=== PATIENT | female | born 1990 | race Caucasian/White ===

== ENCOUNTER 2018-05-30 10:17 | Day surgery (SDC) | payer OTHER ==
[2018-05-30 11:04] VITALS: BMI 34.0
[2018-05-30 11:16] VITALS: BP 113/55; TEMP 99.4
[2018-05-30] MEDS ORDERED: Iron Sucrose Complex 500 MG in Sodium Chloride 0.9% 250 ML 250 ML IVPB SCH (11:35)
[2018-05-30] MEDS ORDERED: Acetaminophen 500 MG TAB PO SCH (11:45)
== END 2018-05-30 15:45 | disposition home health service (06) ==
LOC: L&D/OP 10:17
PROVIDERS: ATTEND Obstetrics & Gynecology
DX: O99.013 Anemia complicating pregnancy, third trimester (principal); Z3A.35 35 weeks gestation of pregnancy
CPT/HCPCS: 96361; 96365; 96366; 99282; J1756; J7050

== ENCOUNTER 2018-06-14 16:37 | Inpatient (IN) | payer OTHER ==
[~2018-06-14 16:37] MED LIST: Bupivacaine/Epinephrine 0.25% 30 ML VIAL ONE; Lidocaine 2% MPF 10 ML AMP (For Epidural Use) ONE
[2018-06-14 17:18] VITALS: BMI 34.4
[2018-06-14] MEDS ORDERED: Lidocaine 1% (PF) 30 ML VIAL SC PRN (17:44)
[2018-06-14] MEDS ORDERED: Butorphanol Tartrate 1 MG/ML VIAL SLOW IVP PRN (17:44)
[2018-06-14] MEDS ORDERED: NS / Oxytocin 40 units/1000ml 1,000 ML IV PRN (17:44)
[2018-06-14] MEDS ORDERED: HYDROcodone/Acetaminophen 5/325 mg Tablet PO PRN ×2 (17:44)
[2018-06-14] MEDS ORDERED: Ibuprofen 800 MG TAB PO PRN (17:44)
[2018-06-14] MEDS ORDERED: NS w/ Oxytocin 10 units 500 ML IV SCH (17:45)
[2018-06-14] MEDS ORDERED: Ondansetron HCl/PF 4 MG/2 ML Vial IVP PRN ×2 (17:46→21:03)
--- NOTE | 2018-06-14 18:00 | PDOC.LDHP ---
Labor and Delivery H&P HPI: Patient of Dr Shook. Patient seen in triage CC: contractions HPI: 28yo WF at 38 weeks, with EDC 06/28/18 who was seen today in the clinic and was 4cm per [place] exam. Here for contractions, and concerned about labor as her first labor was "very fast". No ROM, no VB, no HUERTA, no visual chanhes. She is on celexa medication. Good FM Review of Systems: complete ROS completed and negative as per HPI Current gestational age (weeks): 38 Due date: 06/28/18 Dating criteria: last menstrual period Grav: 2 Para: 1 OB History Details: x1 in 2016 Current complications: none Abnormal US findings: No Current medications: none, other (Celexa) Previous surgical history: other (Amaya, gastric sleeve) Allergies/Adverse Reactions: Allergies Allergy/AdvReac Type Severity Reaction Status Date / Time No Known Allergies Allergy Verified 05/30/18 11:02 Social history: none - Physical Exam Vital signs reviewed and normal: yes Abnormal vital signs: Inital BP 144/89, 122/93 General: NAD Heart: RRR Lungs: CTAB Abdomen: gravid (EFW on exam about 6.5 #) FHT: category 1 - Vaginal Exam cm dilated: 4 (BOWI) Effacement: 75% Station: -1 - Assessment L&D Assessment: medically indicated induction (DX: PIH at 38 weeks, with favorable cervix and HX precipitous delivery in past. Plan D/W Dr Shook and Patient with Family. We will admit and start pitocin augmentation, FHTs category I. [place] with few contractions every 5-6 minutes.) - Plan Plan: admit to L&D, labor augmentation if indicated (Pitocin ordered.), informed consent obtained, anesthesia consult for pain management, other (Dr Shook aware of admit status. We will manage until 8pm or so as requested by her and she will call to assume care after that. I will check out the patient to the next OBGYN head of conservation at 1999.)
--- NOTE | 2018-06-14 18:08 | PDOC.EVN ---
Event Note - Event Note Event Note: Zofran ordered as admit medication. celexa QT warning as interaction noted. I informed the patient's RN about the potential interaction on QT interval and recommended we use zofran conservatively.
[2018-06-14] MEDS: Lactated Ringer's 1,000 ML IV SCH ×2 (18:25→20:44)
[2018-06-14 18:40] LABS: Hemoglobin 11.3 g/dL (12.0-16.0); Mean Corpuscular HGB CONC 33.4 g/dL (32.0-36.0); Mean Corpuscular Hemoglobin 26.6 pg (27.0-31.0); Mean Corpuscular Volume 79.5 fL (78.0-98.0); Mean Platelet Volume 8.5 fL (7.4-10.4); Platelet Count 224 thou/uL (130-400); RBC Distribution Width 17.3 % (11.5-14.5); Red Blood Cell (RBC) Count 4.26 mill/uL (4.20-5.40); White Blood Cell (WBC) Count 8.8 thou/uL (4.8-10.8)
[2018-06-14] MEDS ORDERED: DISCONTINUE ALL PREVIOUS NARCOTICS FS SCH (18:45)
[2018-06-14] MEDS ORDERED: Bupivacaine 0.75% 13.4 ML, fentaNYL Citrate/PF 400 MCG in Sodium Chloride 0.9% 78.6 ML EPIDURAL SCH (18:45)
[2018-06-14 18:53] LABS: ALT (SGPT) 7 U/L (8-55); AST (SGOT) 14 U/L (5-34); Albumin 3.6 g/dL (3.5-5.0); Alkaline Phosphatase 144 U/L (40-150); Anion Gap 15 mmol/L (10-20); BUN (Urea Nitrogen) 6 mg/dL (7.0-18.7); Bilirubin, Total 0.3 mg/dL (0.2-1.2); Calc. Creatinine Clearance 188 mL/min (70-130); Calcium 8.5 mg/dL (7.8-10.44); Carbon Dioxide 19 mmol/L (22-29); Chloride 107 mmol/L (98-107); Estimated GFR-MDRD Greater than 90; Globulin 2.6 g/dL (2.4-3.5); Glucose 68 mg/dL (70-105); Potassium 4.1 mmol/L (3.5-5.1); Protein, Total 6.2 g/dL (6.0-8.3); Sodium 137 mmol/L (136-145)
[2018-06-14 19:11] LABS: Syphilis Antibody Nonreactive (Nonreactive)
[2018-06-14 19:19] LABS: HBSAg Index 0.22 S/CO (0-0.99); HIV (1/2) Antibody/Antigen Non-Reactive (NonReactive); HIV 1/2 INDEX 0.17 S/CO (<1.00); Hep B Surf Ag Non-Reactive S/CO (NonReactive)
--- NOTE | 2018-06-14 19:39 | PDOC.EVN ---
Event Note - Event Note Event Note: AROM done at 1830, per [facility] request. AROM discussed with patient. IUPC placement also discussed. Pitocin in use FHTs cat 1 Exam: /-/cep Arom performed without issue and IUPC placed Moderate clear fluid
[2018-06-14] MEDS ORDERED: Lidocaine HCl/Epinephrine 5 ML AMPUL IJ ONE (20:26)
[2018-06-14] MEDS ORDERED: ePHEDrine/0.9% NaCl/PF SYRINGE 50 mg/10 ml SLOW IVP PRN (21:03)
[2018-06-14] MEDS ORDERED: Naloxone HCl 0.4 mg/ml Vial IVP PRN ×2 (21:03)
[2018-06-14] MEDS ORDERED: Acetaminophen 325 MG TAB PO PRN (21:03)
[2018-06-14] MEDS ORDERED: diphenhydrAMINE 50 MG/ML VIAL IVP PRN (21:03)
[2018-06-14] MEDS ORDERED: Lactated Ringer's 500 ML IV PRN (21:03)
[2018-06-14] MEDS ORDERED: Eucerin (Mineral Oil/Petrolatum,White) 30 gm Jar TOP PRN (21:03)
[2018-06-14] MEDS ORDERED: Promethazine HCl 25 MG/ML VIAL IM PRN (21:03)
[2018-06-14] MEDS ORDERED: Communication Order-Pharmacy FS SCH (21:15)
[2018-06-14] MEDS ORDERED: fentaNYL Citrate/PF 400 MCG, Bupivacaine 0.5% 20 ML in Sodium Chloride 0.9% 72 ML EPIDURAL SCH (21:15)
[2018-06-14 22:34] LABS: Creatinine, Urine 173.78 mg/dL (47-110)
--- NOTE | 2018-06-14 23:11 | PDOC.OPDEL ---
OB Operative/Delivery Note Delivery Dr/Surgeon: [place] Pre-Delivery Diagnosis: medically indicated induction (GHTN) Weeks gestation: 38 Anesthesia: epidural - Findings A Sex: female - 1 min: 8 - 5 min: 9 - Additional Findings/Plan Placenta delivered: spontaneous Repaired Obstetrical Laceration: 1st degree Estimated blood loss: quant blood loss pending, EBL 300ml Post delivery plan: routine recovery
[2018-06-15] MEDS: Lactated Ringer's 1,000 ML IV SCH (00:25)
[2018-06-15] MEDS ORDERED: Lanolin Ointment 7 GM TUBE TOP PRN (01:00)
[2018-06-15] MEDS ORDERED: NS / Oxytocin 40 units/1000ml 1,000 ML IV SCH (01:00)
[2018-06-15] MEDS ORDERED: Ondansetron HCl/PF 4 MG/2 ML Vial IVP PRN (01:00)
[2018-06-15] MEDS ORDERED: diphenhydrAMINE 25 MG CAP PO PRN (01:00)
[2018-06-15] MEDS ORDERED: Benzocaine/Menthol 20-0.5% 60 ML CAN TOP PRN (01:00)
[2018-06-15] MEDS ORDERED: Bisacodyl 10 MG SUPP PR PRN (01:00)
[2018-06-15] MEDS ORDERED: Milk Of Magnesia 30 ML UDCUP PO PRN (01:00)
[2018-06-15] MEDS ORDERED: Acetaminophen/Codeine 30-300mg Tablet PO PRN ×2 (01:00)
[2018-06-15] MEDS ORDERED: Preparation H Ointment 28 GM TUBE PR PRN (01:00)
[2018-06-15] MEDS ORDERED: Adacel (T-DAP) 0.5 ML VIAL IM ONE (01:00)
[2018-06-15] MEDS: Ibuprofen 800 MG TAB PO SCH ×3 (01:40→22:07)
[2018-06-15 05:55] LABS: Hemoglobin 9.9 g/dL (12.0-16.0); Mean Corpuscular HGB CONC 31.9 g/dL (32.0-36.0); Mean Corpuscular Volume 81.4 fL (78.0-98.0); Mean Platelet Volume 8.7 fL (7.4-10.4); Platelet Count 180 thou/uL (130-400); RBC Distribution Width 17.3 % (11.5-14.5); White Blood Cell (WBC) Count 11.3 thou/uL (4.8-10.8)
[2018-06-15] MEDS: Prenatal Vitamin 1 TAB PO SCH (08:25)
[2018-06-15] MEDS: Ferrous Sulfate 325 MG TAB PO SCH ×2 (08:25→18:48)
[2018-06-15] MEDS: Docusate Calcium (SURFAK) 240 MG CAP PO SCH ×2 (08:25→22:07)
--- NOTE | 2018-06-15 11:45 | PDOC.PP ---
Post Progress Note Post Day #: 1 Subjective: doing well, no concerns PO intake tolerated: yes Flatus: yes Ambulation: yes Vital Signs (12 hours) Temp Pulse Resp BP 06/15/18 08:21 97.7 F 60 20 135/60 06/15/18 08:00 97.7 F 60 20 06/15/18 06:00 98.6 F 62 16 116/75 06/15/18 03:36 98.6 F 80 16 120/68 06/15/18 02:20 98.6 F 96 16 127/64 06/15/18 01:20 90 16 135/82 06/15/18 00:50 99.2 F 65 16 125/68 Weight Weight 201 lb - Physical Examination General: NAD Respiratory: non-labored breathing Fundus firm & at: below umb Skin: no rash Neurological: no gross focal deficits Psychiatric: A&Ox3, normal affect Result Diagrams: 06/15/18 05:35 06/14/18 18:25 Additional Labs: Post Labs Blood Type A POSITIVE 06/14/18 18:25 Hep Bs Antigen Non-Reactive S/CO (NonReactive) 06/14/18 18:25 (1) Vaginal delivery Code(s): O80 - ENCOUNTER FOR FULL-TERM UNCOMPLICATED DELIVERY Status: Acute (2) Gestational hypertension Code(s): O13.9 - GESTATIONAL HTN W/O SIGNIFICANT PROTEINURIA, UNSP TRIMESTER Status: Acute - Assessment/Plan PPD1 sp IOL for GHTN, BP wnl today. Plan for DC tomorrow.
[2018-06-16] MEDS: Ibuprofen 800 MG TAB PO SCH (04:52)
[2018-06-16] MEDS: Prenatal Vitamin 1 TAB PO SCH (08:51)
[2018-06-16] MEDS: Ferrous Sulfate 325 MG TAB PO SCH (08:51)
[2018-06-16] MEDS: Docusate Calcium (SURFAK) 240 MG CAP PO SCH (08:51)
[2018-06-16 10:25] VITALS: BP 119/84; TEMP 98.3
--- NOTE | 2018-06-16 11:24 | PDOC.PP ---
Post Progress Note Post Day #: 2 Subjective: doing well, no concerns PO intake tolerated: yes Flatus: yes Ambulation: yes Vital Signs (12 hours) Temp Pulse Resp BP 06/16/18 10:10 98.3 F 56 L 14 06/16/18 08:50 98.3 F 56 L 14 119/84 Weight Weight 201 lb - Physical Examination General: NAD Fundus firm & at: below umb Skin: CS incision dry & intact, no rash Psychiatric: A&Ox3, normal affect Result Diagrams: 06/15/18 05:35 06/14/18 18:25 Additional Labs: Post Labs Blood Type A POSITIVE 06/14/18 18:25 Hep Bs Antigen Non-Reactive S/CO (NonReactive) 06/14/18 18:25 (1) Vaginal delivery Code(s): O80 - ENCOUNTER FOR FULL-TERM UNCOMPLICATED DELIVERY Status: Acute (2) Gestational hypertension Code(s): O13.9 - GESTATIONAL HTN W/O SIGNIFICANT PROTEINURIA, UNSP TRIMESTER Status: Acute - Assessment/Plan PPD2 doing well, no concerns. DC today.
== END 2018-06-16 14:10 | disposition home or self-care (01) | DRG 775 ==
LOC: L&D/OP 16:37 → L&D 17:55 → 3SW 06-15 00:51
PROVIDERS: ADMIT Obstetrics & Gynecology; ATTEND Obstetrics & Gynecology
PROC: 10E0XZZ Delivery of Products of Conception, External Approach (ICD-10-PCS; principal; 2018-06-14)
PROC: 0HQ9XZZ Repair Perineum Skin, External Approach (ICD-10-PCS; 2018-06-14)
PROC: 10907ZC Drainage of Amniotic Fluid, Therapeutic from Products of Conception, Via Natural or Artificial Opening (ICD-10-PCS; 2018-06-14)
PROC: 3E033VJ Introduction of Other Hormone into Peripheral Vein, Percutaneous Approach (ICD-10-PCS; 2018-06-14)
DX: O13.4 Gestational [pregnancy-induced] hypertension without significant proteinuria, complicating childbirth (principal); Z3A.38 38 weeks gestation of pregnancy; Z37.0 Single live birth; O70.0 First degree perineal laceration during delivery
CPT/HCPCS: 36415; 51702; 80053; 82570; 84156; 85027; 86780; 86850; 86900; 86901; 87340; 87389; 99285; J2001; J2405; J2550; J3010; J3490; J7050

== ENCOUNTER 2020-10-08 19:45 | Inpatient (IN) | payer OTHER, SELFPAY ==
[2020-10-08] MEDS ORDERED: Ondansetron PF 4 MG/2 ML Vial IVP PRN (20:14)
[2020-10-08] MEDS ORDERED: hydrALAZINE 20 MG/ML VIAL SLOW IVP PRN (20:14)
[2020-10-08] MEDS ORDERED: NS / Oxytocin 40 units/1000ml 1,000 ML IV PRN (20:14)
[2020-10-08] MEDS ORDERED: Lidocaine 1% (PF) 30 ML VIAL SC PRN (20:14)
[2020-10-08] MEDS ORDERED: Lactated Ringer's 1,000 ML IV SCH (20:30)
[2020-10-08] MEDS ORDERED: Misoprostol 100 MCG TAB VAG SCH (20:30)
[2020-10-08 20:35] VITALS: BP 138/85; BMI 31.4
[2020-10-08] MEDS ORDERED: Zolpidem Tartrate 5 MG TAB PO PRN (21:17)
[2020-10-08 22:45] LABS: Hemoglobin 12.1 g/dL (12.0-16.0); Mean Corpuscular HGB CONC 33.8 g/dL (32.0-36.0); Mean Corpuscular Hemoglobin 29.8 pg (27.0-31.0); Mean Platelet Volume 7.3 fL (7.4-10.4); Platelet Count 281 thou/uL (130-400); RBC Distribution Width 11.5 % (11.5-14.5); Red Blood Cell (RBC) Count 4.07 mill/uL (4.20-5.40); White Blood Cell (WBC) Count 7.8 thou/uL (4.8-10.8)
[2020-10-08] MEDS ORDERED: Acetaminophen 500 MG TAB PO PRN (23:29)
[2020-10-09] MEDS: Misoprostol 100 MCG TAB VAG SCH ×3 (01:55→05:22)
[2020-10-09] MEDS: Butorphanol Tartrate 1 MG/ML VIAL SLOW IVP PRN ×4 (03:34→07:15)
[2020-10-09] MEDS ORDERED: Fentanyl 100 MCG/2 ML VIAL SLOW IVP PRN (08:08)
[2020-10-09] MEDS ORDERED: Ondansetron PF 4 MG/2 ML Vial IVP PRN (08:11)
[2020-10-09] MEDS ORDERED: Fentanyl 100 MCG/2 ML VIAL SLOW IVP SCH (08:15)
[2020-10-09] MEDS ORDERED: Fentanyl 100 MCG/2 ML VIAL ONE (08:30)
[2020-10-09] MEDS ORDERED: Misoprostol 200 MCG TAB ONE (10:35)
[2020-10-09 12:15] LABS: SARS-CoV-2 MS2 Positive; SARS-CoV-2 N Gene Negative; SARS-CoV-2 S Gene Negative; SARS-CoV-2 by NAA Not Detected (NotDetected); SARS-CoV-2 orf1ab Negative
--- NOTE | 2020-10-09 14:13 | DIS ---
DATE OF ADMISSION: 10/08/2020 DATE OF DISCHARGE: 10/09/2020 TIME OF SERVICE: 1400 hours. SUMMARY OF HOSPITAL COURSE: The patient was admitted with a 17-week intrauterine demise. She underwent a Cytotec induction of labor and delivered miscarriage at approximately 0900 hours today. The placenta delivered intact at approximately 1030 hours. QBL was 850 mL. Since delivery, the placenta bleeding has been minimal to any. The patient has tolerated it well and will be discharged home. Discharge medications will be Cytotec 200 mcg p.o. q.6 hours x4 doses. The patient's COVID test was negative by PCR. . Job ID: [id number]
--- NOTE | 2020-10-10 08:42 | DN ---
DATE OF PROCEDURE: 10/09/2020 Ms. West is a 30-year-old 3, para 2, with an IUFD at 17 weeks gestation. She received Cytotec overnight per vagina. She delivered spontaneous fetus at approximately 9:15 a.m., male, weighing 59 g. He was grossly normal with slight desquamation. No gross abnormalities were noted. Placenta did not deliver spontaneously, but did so with digital exam and removal at approximately 10:30 a.m. QBL was approximately 700 mL to this point in time. The placenta appeared to be intact. Entire length of umbilical cord was taken, cleaned, and placed in the provided solution for the patient's Mary SNP testing for anomaly loss. The patient will be observed over the next few hours for bleeding. She received Cytotec p.o. 200 after delivery of the fetus and is receiving IV Pitocin. . Job ID: [id number]
== END 2020-10-09 14:45 | disposition home or self-care (01) | DRG 779 ==
LOC: L&D 19:57
PROVIDERS: ADMIT Obstetrics & Gynecology; ATTEND Obstetrics & Gynecology
PROC: 10E0XZZ Delivery of Products of Conception, External Approach (ICD-10-PCS; principal; 2020-10-08)
PROC: 3E0P7VZ Introduction of Hormone into Female Reproductive, Via Natural or Artificial Opening (ICD-10-PCS; 2020-10-08)
DX: O03.9 Complete or unspecified spontaneous abortion without complication (principal); Z20.828 Contact with and (suspected) exposure to other viral communicable diseases
CPT/HCPCS: 36415; 85027; 86850; 86900; 86901; 87635; J0595; J3010; U0003